=== PATIENT | female | born 2000 | race Caucasian/White ===

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

== ENCOUNTER → 2019-05-09 | Outpatient (CLI) | payer OTHER ==
[2017-06-19 20:09] VITALS: BP 103/79
[~2019-05-09] MED LIST changes: +YAZ 28 3 MG-0.01 TAB PO
[2019-05-09 12:13] LABS: EOS % 0.5 % (0.1-4.0); HEMATOCRIT 42.6 % (35.0-45.0); HEMOGLOBIN 14.6 g/dL (12.0-15.0); LYMPH# 1.9 (1.20-3.40); MEAN CELL VOLUME 83 fl (78-95); MEAN CORPUSCULAR HEMOGLOBIN 28 pg (26-32); MEAN CORPUSCULAR HGB CONC 34 g/dL (33-37); MEAN PLATELET VOLUME 10.6 fl (7.4-10.4); MONO # 0.4 (0.10-0.60); NEU # 3.7 (1.40-6.50); PLATELET COUNT 258 K/mm3 (130-400); RED BLOOD COUNT 5.14 M/mm3 (4.10-5.30); RED CELL DISTRIBUTION WIDTH 12.7 % (11.5-14.5)
== END ==
LOC: LAB 11:54
PROVIDERS: Family Medicine
DX: J32.9 Chronic sinusitis, unspecified (principal); J02.0 Streptococcal pharyngitis; J35.1 Hypertrophy of tonsils

== ENCOUNTER → 2019-11-08 | Outpatient (CLI) | payer OTHER ==
[2017-06-19 20:09] VITALS: BP 103/79
== END ==
LOC: RAD 15:30
DX: R10.31 Right lower quadrant pain (principal)